=== PATIENT | female | born 1955 | race Caucasian/White ===

== ENCOUNTER → 2025-02-03 07:01 | Outpatient (CLI) | payer MEDICARE, OTHER, SELFPAY ==
[2025-02-03 07:40] LABS: Hemoglobin A1C% w Est Avg Glu 5.3 % (4.0-6.0)
[2025-02-03 07:50] LABS: Alanine Aminotransferase 19 IU/L (<35); Albumin 4.6 g/dL (3.5-5.0); Albumin Globulin Ratio 2.6 (1.0-2.8); Alkaline Phosphatase 44 U/L (38-126); Aspartate Aminotransferase 28 IU/L (14-36); BUN Creatinine Ratio 27.9 (6-22); Bilirubin Total 0.7 mg/dL (0.2-1.3); Blood Urea Nitrogen 19 mg/dL (7-17); Calcium 9.8 mg/dL (8.4-10.2); Carbon Dioxide 27 mmol/L (22-32); Chloride 105 mmol/L (98-107); Cholesterol 231 mg/dL (140-199); Estimated Glomerular Filt Rate > 60 mL/min (>60); Globulin 1.8 g/dL (1.7-4.1); Glucose 101 mg/dL (70-99); HDL Cholesterol 85 mg/dL (40-60); HEMOLYSIS < 15 (0-50); LDL Cholesterol Calculated 134 mg/dL (<100); Potassium 5.1 mmol/L (3.4-5.1); Sodium 139 mmol/L (137-145); Total Protein 6.4 g/dL (6.3-8.2); Triglycerides 58 mg/dL (35-150)
[2025-02-03 08:23] LABS: Ferritin 44 ng/mL (11-264)
[2025-02-06 23:08] LABS: Insulin Level Total 7.6 uIU/mL (2.6-24.9)
== END ==
PROVIDERS: PCP Family Medicine; Referring Provider Family Medicine; Visit Provider Family Medicine
DX: R73.03 Prediabetes (principal); C91.10 Chronic lymphocytic leukemia of B-cell type not having achieved remission; M85.80 Other specified disorders of bone density and structure, unspecified site; N95.1 Menopausal and female climacteric states; D64.9 Anemia, unspecified
CPT/HCPCS: 36415; 80053; 80061; 82728; 83036; 83525

== ENCOUNTER → 2025-02-17 11:03 | Outpatient (CLI) | payer MEDICARE, OTHER, SELFPAY ==
[2025-02-17 13:18] LABS: Free T3, Triiodothyronine Free 4.28 pg/mL (2.77-5.27)
[2025-02-17 13:32] LABS: TSH w/ Reflex to FT4 2.25 uIU/mL (0.47-4.68)
== END ==
PROVIDERS: PCP Family Medicine; Referring Provider Family Medicine; Visit Provider Family Medicine
DX: L65.8 Other specified nonscarring hair loss (principal); C91.10 Chronic lymphocytic leukemia of B-cell type not having achieved remission; N95.1 Menopausal and female climacteric states
CPT/HCPCS: 36415; 84443; 84481